=== PATIENT | female | born 1960 | race Caucasian/White ===

== ENCOUNTER 2019-08-16 15:31 | Emergency (ER) | payer OTHER, MEDICAID ==
[~2019-08-16] VITALS: Ht 165.1 cm; Wt 137.0 kg
[2019-08-16 19:07] LABS: BASOPHILS % 0.5 % (0.0-2.0); CHLORIDE 103 mEq/L (98-107); EOSINOPHILS % 3.2 % (0.0-5.0); HEMATOCRIT. 38.9 % (36.0-48.0); LYMPHOCYTES % 31.1 % (20.0-50.0); MEAN CORPUSCULAR VOLUME 92.3 fL (81.0-99.0); MEAN PLATELET VOLUME 7.2 fl (7.4-10.4); MONOCYTES % 8.7 % (2.0-8.0); NEUTROPHILS % 56.5 % (40.0-76.0); PLATELET 143 x1000/uL (130-400); RED BLOOD CELL COUNT 4.21 mill/uL (4.2-5.4); RED CELL DISTRIBUTION WIDTH 14.8 % (11.6-14.6)
[2019-08-16 19:11] LABS: ETHANOL BLOOD < 10 mg/dL
[2019-08-16 19:50] LABS: CLARITY URINE CLEAR (CLEAR); COLOR URINE YELLOW (YELLOW); KETONES URINE NEGATIVE (NEGATIVE); LEUKOCYTE ESTERASE URINE NEGATIVE (NEGATIVE); NITRITE URINE NEGATIVE (NEGATIVE); OCCULT BLOOD URINE NEGATIVE (NEGATIVE); PH URINE 6.5 (4.5-8.0); PROTEIN URINE NEGATIVE (NEGATIVE); SPECIFIC GRAVITY URINE 1.004 (1.005-1.030); UROBILINOGEN URINE 0.2 E.U./dL (0.2-1.0)
[2019-08-16 20:16] LABS: *AMPHETAMINES SCREEN URINE NEGATIVE (NEGATIVE)
[2019-08-16 20:18] LABS: *BARBITURATES SCREEN URINE NEGATIVE (NEGATIVE); *BENZODIAZEPINES SCREEN URINE NEGATIVE (NEGATIVE); *COCAINE SCREEN URINE NEGATIVE (NEGATIVE); CANNABINOID URINE SCREEN NEGATIVE (NEGATIVE); METHADONE URINE SCREEN NEGATIVE (NEGATIVE); OPIATES URINE SCREEN NEGATIVE (NEGATIVE); PHENCYCLIDINE URINE SCREEN NEGATIVE (NEGATIVE)
[2019-08-17] MEDS ORDERED: LORAZEPAM 1MG TABLET PO PRN (18:45)
[2019-08-17] MEDS: CITALOPRAM HYDROBROMIDE 10MG TABLET PO SCH (19:34)
[2019-08-17] MEDS: DIVALPROEX SODIUM 500MG ER TABLET PO SCH (19:34)
[2019-08-18] MEDS ORDERED: ARIPIPRAZOLE 10MG TABLET PO SCH (07:00)
[2019-08-18] MEDS: DIVALPROEX SODIUM 500MG ER TABLET PO SCH ×2 (09:34→18:23)
[2019-08-18] MEDS: CITALOPRAM HYDROBROMIDE 10MG TABLET PO SCH (09:34)
[2019-08-18] MEDS ORDERED: LEVOTHYROXINE SODIUM 100MCG TABLET PO ONE (13:45)
[2019-08-18] MEDS ORDERED: LORAZEPAM 2MG/ML CPJ IM STA (18:39)
[2019-08-18] MEDS ORDERED: DIPHENHYDRAMINE 50MG/ML VIAL IM ONE (18:45)
[2019-08-18 21:39] VITALS: BP 140/75
[2019-08-19] MEDS ORDERED: ARIPIPRAZOLE 5MG TABLET PO SCH (07:00)
== END 2019-08-18 22:01 ==
LOC: ER 15:31
DX: R45.851 Suicidal ideations (principal); E03.9 Hypothyroidism, unspecified; F84.0 Autistic disorder; F20.9 Schizophrenia, unspecified; Z88.8 Allergy status to other drugs, medicaments and biological substances
CPT/HCPCS: 36415; 80053; 80305; 80307; 80320; 80329; 81003; 84443; 85025; 99284; J1200; J2060; G0480

== ENCOUNTER 2023-09-17 18:40 | Emergency (ER) | payer OTHER, MEDICAID ==
[~2023-09-17] VITALS: Ht 160 cm; Wt 54.0 kg
[2023-09-17 18:55] VITALS: BP 134/59; PULSE 67; RESP 16; TEMP 98.7; O2SAT 97
== END 2023-09-17 19:44 | disposition home or self-care (01) ==
LOC: ER 18:40
DX: Z00.00 Encounter for general adult medical examination without abnormal findings (principal); F10.229 Alcohol dependence with intoxication, unspecified; Y90.0 Blood alcohol level of less than 20 mg/100 ml
CPT/HCPCS: 99283